=== PATIENT | female | born 1960 | race Caucasian/White ===

== ENCOUNTER → 2017-03-13 | Outpatient (CLI) | payer OTHER | LOC: BMCIMAGING 14:00 | DX: Z12.31 Encounter for screening mammogram for malignant neoplasm of breast (principal) | CPT/HCPCS: G0202 ==

== ENCOUNTER → 2017-09-07 | Outpatient (CLI) | payer OTHER | LOC: BMCIMAGING 11:52 | PROVIDERS: ATTEND Physician Assistant Medical | DX: I51.7 Cardiomegaly (principal); J98.9 Respiratory disorder, unspecified ==

== ENCOUNTER 2017-09-27 12:16 | Emergency (ER) | payer OTHER ==
[2017-09-27 12:28] VITALS: RESP 18
--- NOTE | 2017-09-27 13:24 | EDPHY ---
General - History Smoking Status: Never smoked Narrative: Independent physician documentation I evaluated and participated in the management of the patient. I also evaluated the patient independently. My co-signature indicates that I have reviewed this chart and I agree with the findings and plan of care as documented. My personal H&P findings include: The patient presents to the ED with acute left elbow pain following a mechanical fall. The patient has inability to flex and extend her elbow. She has no complaints of acute numbness or weakness. The patient did not strike her head or lose consciousness. She has no complaints of abdominal pain, chest pain or additional extremity complaints. Physical exam General Appearance: Alert, no distress Head: Atraumatic Eyes: Pupils equal, round, reactive ENT, Mouth: No hemotympanum, no oral trauma Neck: Nontender, trachea midline Respiratory: No chest wall tender, subcutaneous air, lungs clear bilaterally Cardiovascular: Regular rate and rhythm Abdomen: Abdomen is soft and nontender, pelvis stable Skin: No lacerations, No abrasion Back: No midline T/L/S pain Extremities: Obvious deformity noted to left elbow Neurological: A&Ox3, normal motor function, normal sensory exam ER course: I reviewed the patient's x-rays which demonstrated posterior left elbow dislocation. The patient was verbally consented to undergo reduction with sedation. The patient was reduced by myself without complication. The patient will be placed in a posterior splint. She is given a sling and advised to follow up with her regular orthopedic surgeon Dr. Francis Fung. Procedures Procedure: Reduction of left posterior elbow dislocation Indication: Dislocation The left elbow was reduced in the usual fashion without complications. The patient received 50 mg of ketamine and 150 mcg of fentanyl prior to the procedure. Post reduction the patient's neurovascular exam is normal. Post reduction x-ray demonstrates reduction of the joint to the anatomic position. The procedure was performed by myself. The patient has been placed in a posterior Ortho Glass splint. Post reduction x-ray demonstrates no evidence of a surgical fracture. The patient does have some very small foreign bodies which appear to be old as they are smooth well corticated. Patient will follow up with Dr. Francis Fung who she has seen in the past. (Louie Weems) CHIEF COMPLAINT: Mechanical fall, left elbow pain HISTORY OF PRESENT ILLNESS: Patient complains of left elbow pain. She says she was walking on her property just prior to arrival when she tripped and fell. She is not sure whether she landed with her arm straight or if she landed on her elbow. She did not strike her head or lose consciousness. No headache or loss of conscious. No neck pain. No chest or back pain. No abdominal pain or injuries to the arms or legs. She has some tingling of the left hand. The pain is moderate to severe in the left elbow. Radiates into the forearm. No pain anywhere else. No other associated complaints or modifying factors. ESTABLISHED ORTHOPEDIST: Dr. Fung REVIEW OF SYSTEMS: Ten systems reviewed and are negative unless otherwise noted in the HPI PAST MEDICAL HISTORY: Coronary artery disease, hypertension, SVT, seasonal allergies, diabetes mellitus PAST SURGICAL HISTORY: Left knee surgery SOCIAL HISTORY: Nonsmoker. Occasional alcohol. No drug use FAMILY HISTORY: EXAMINATION General Appearance: Alert, no distress Cardiovascular: Pulses normal throughout. Symmetric radial pulses 2+. Brisk cap refill Neurological: A&O, paresthesias of dorsum left hand. Wrist drop. Strength symmetric in the interossei. Skin: Warm and dry, no rash. No lacerations abrasions, contusions or punctures. Extremities: Tenderness of the left elbow and proximal forearm. Unable to test range of motion due to pain. No tenderness of the left wrist or shoulder. Psychiatric: Mood and affect normal DIFFERENTIAL DIAGNOSES: Including but not limited to fracture, sprain, strain, contusion, dislocation, fracture dislocation MDM: 12:30 p.m. Mechanical fall with left elbow pain. Clinically as suspected radial head fracture. She reports paresthesias of the hand but has no weakness or wrist drop. Her shoulders fine and has no pain. X-ray has been ordered. 1:20 p.m. X-ray as read by me reveals an elbow dislocation. I have reviewed the film with Dr. Weems. He is currently evaluating the patient. Will place IV for further pain medication closed reduction attempt. Have informed the patient of this. She still complains of paresthesia but appears to be neuro intact otherwise. 2:05 p.m. Elbow has been reduced by Dr. Weems. Please see his note for details. Post reduction film is pending. 2:25 p.m. Elbow reduction that has been reduced by Dr. Weems. She is in no acute distress. I have re-evaluated the patient. She is neurovascular intact. Currently being placed in a splint. She will be discharged home with instructions to follow up with her established orthopedist. ED precautions discussed. She is comfortable this plan. ED Precautions: Worsening pain. Erythema, edema, cyanosis, pallor, paresthesia or anesthesia. (Minor Antonio) - Diagnostics Imaging Results: Imaging Impressions Elbow X-Ray 09/27/17 12:35 Impression: Elbow dislocation. - Objective Vital Signs: Initial Vital Signs Temperature (C) 97.9 F 09/27/17 12:26 Heart Rate 61 09/27/17 12:26 Respiratory Rate 18 09/27/17 12:26 Blood Pressure 159/89 H 09/27/17 12:26 O2 Sat (%) 88 L 09/27/17 12:26 O2 Delivery Mode [Post Nasal Cannula Procedure 2nd] O2 Delivery Mode [Post Room Air Procedure 1st] O2 Delivery Mode [Procedural Room Air 1st] O2 Delivery Mode [.Immediate Nasal Cannula Pre-Procedure] O2 Delivery Mode Nasal Cannula O2 (L/minute) [Post Procedure 2 2nd] O2 (L/minute) [Procedural 1st] 2 O2 (L/minute) [.Immediate Pre- 2 Procedure] O2 (L/minute) 2 Allergies/Adverse Reactions: ENVIRONMENTAL- HAYFEVER Allergy (Mild, Uncoded 08/25/14 12:56) Home Medications: Medication Instructions Recorded Aspirin [Aspirin 81mg (OTC)] 81 mg PO HS 08/27/14 Citalopram Hydrobromide 10 mg PO HS 08/27/14 [Citalopram HBr] Clopidogrel Bisulfate [Plavix (RX)] 75 mg PO DAILY 08/27/14 Levothyroxine [Synthroid 112 mcg 112 mcg PO DAILY06 08/27/14 (RX)] Loratadine [Claritin] 10 mg PO HS 08/27/14 Methocarbamol [Robaxin 500 mg (RX)] 250 mg PO HS 08/27/14 Metoprolol Tartrate [Lopressor 25 12.5 mg PO BID 08/27/14 mg (RX)] Ranitidine HCl [Zantac] 300 mg PO HS 08/27/14 Rosuvastatin Calcium [Crestor 40mg 40 mg PO DAILY 08/27/14 (RX)] Zolpidem Tartrate [Ambien 10 mg] 10 mg PO HS 08/27/14 Enoxaparin [Lovenox] 30 mg SC BID #20 syr 10/29/14 oxyCODONE IR [Oxycodone Ir (*)] 5 - 15 mg PO Q3 PRN #90 tab 09/24/14 oxyCODONE HCL/ACETAMINOPHEN 1 each PO Q4-6PRN PRN #15 tablet 09/27/17 [Percocet 5-325 mg Tablet] Medications Given: Discontinued Medications Fentanyl (Sublimaze) 150 mcg IVP EDNOW ONE Stop: 09/27/17 13:26 Last Admin: 09/27/17 13:42 Dose: 150 mcg Ketamine HCl (Ketamine) 50 mg IVP EDNOW ONE Stop: 09/27/17 13:59 Last Admin: 09/27/17 13:59 Dose: 50 mg Departure - Departure Disposition: Home, Routine, Self-Care Clinical Impression: Dislocation of elbow, left, closed Qualifiers: Encounter type: initial encounter Qualified Code(s): S53.105A - Unspecified dislocation of left ulnohumeral joint, initial encounter Fall Qualifiers: Encounter type: initial encounter Qualified Code(s): W19.XXXA - Unspecified fall, initial encounter Condition: Good Instructions: Elbow Dislocation (ED) Additional Instructions: 1. Nonweightbearing to the left upper extremity until seen by orthopedist 2. Pain medication as prescribed as needed 3. ED precautions as discussed Referrals: Francis Fung MD [Medical Doctor] - As per Instructions Prescriptions: oxyCODONE HCL/ACETAMINOPHEN [Percocet 5-325 mg Tablet] 1 each PO Q4-6PRN PRN # 15 tablet PRN Reason: Pain, Breakthrough
[2017-09-27] MEDS ORDERED: fentaNYL 100 MCG/2 ML INJ IVP ONE (13:25)
[2017-09-27] MEDS ORDERED: KETAMINE 100 MG/10 ML SYR ONE (13:35)
[2017-09-27] MEDS ORDERED: KETAMINE 100 MG/10 ML SYR IVP ONE (13:58)
[2017-09-27 15:04] VITALS: BP 156/65; PULSE 70; TEMP 98.1; O2SAT 97
== END 2017-09-27 15:04 | disposition home or self-care (01) ==
LOC: EDUNIT#
PROC: 0RS Upper Joints, Reposition (ICD-10-PCS; principal; 2017-09-27)
DX: S53.105A Unspecified dislocation of left ulnohumeral joint, initial encounter (principal); I25.10 Atherosclerotic heart disease of native coronary artery without angina pectoris; I10 Essential (primary) hypertension; E11.9 Type 2 diabetes mellitus without complications; Z79.82 Long term (current) use of aspirin; W01.0XXA Fall on same level from slipping, tripping and stumbling without subsequent striking against object, initial encounter
CPT/HCPCS: J3010; L3980

== ENCOUNTER → 2017-09-28 | Outpatient (CLI) | payer OTHER | LOC: BMCIMAGING 15:56 | PROVIDERS: ATTEND Orthopaedic Surgery Hand Surgery | DX: S59.902A Unspecified injury of left elbow, initial encounter (principal) ==

== ENCOUNTER → 2017-10-10 | Outpatient (CLI) | payer OTHER | LOC: BMCLAB 11:39 | PROVIDERS: ATTEND Orthopaedic Surgery Hand Surgery | DX: M53.3 Sacrococcygeal disorders, not elsewhere classified (principal); R10.32 Left lower quadrant pain; M25.522 Pain in left elbow ==

== ENCOUNTER → 2018-04-16 | Outpatient (CLI) | payer OTHER | LOC: BMCIMAGING 12:19 | PROVIDERS: ATTEND Internal Medicine | DX: Z12.31 Encounter for screening mammogram for malignant neoplasm of breast (principal) ==

== ENCOUNTER → 2019-01-24 | Day surgery (SDC) | payer OTHER ==
[~2019-01-24] MED LIST: ADENOSINE 90 MG/30 ML VIAL IV ONE; ASPIRIN EC 325 MG TAB PO ONE; ATROPINE SULFATE 1 MG/10 ML SYR IVP PRN; DIAZEPAM 5 MG TAB ONE; DIAZEPAM 5 MG TAB PO ONE; FAMOTIDINE 20 MG TAB ONE; FAMOTIDINE 20 MG TAB PO ONE; HEPARIN 10,000 UNIT/10 ML MDV (1,000 UNIT/ML) ONE; HYDROCODONE/APAP 5/325 TAB PO PRN; IOPAMIDOL (ISOVUE-370) 150 ML BTL IV ONE; LIDOCAINE 1% 300 MG/30 ML SDV ONE; MIDAZOLAM 2 MG/2 ML VIAL ONE; NITROGLYCERIN 0.4 MG BTL SL PRN; NS 1,000 ML IV ONE; VERAPAMIL 5 MG/2 ML VIAL ONE; diphenhydrAMINE 25 MG CAP PO ONE; fentaNYL 100 MCG/2 ML INJ ONE
[2019-01-24 08:42] LABS: PLATELET COUNT 221 10^3/uL (150-400)
[2019-01-24 08:53] LABS: INR 0.96 (0.83-1.16); PROTIME(PATIENT) 12.4 SEC (12.0-15.0)
--- NOTE | 2019-01-24 09:19 | PDGENHP ---
History & Physical Chief Complaint: Chest pain History of Present Illness: Has a h/o CAD with prior STEMI and PCI of the RCA. Has been experiencing anginal quality symptoms for several weeks. A nuclear stress test demonstrated anterior ischemia. See office note of 12/21/2018. Pertinent Past, Social, Family History: See office note of 12/21/2018. Relevant Physical Exam: A & O x 3. RRR w/o murmur. Lungs CTA. No edema.
--- NOTE | 2019-01-24 09:22 | PDPROPOC ---
Sedation Plan of Care Sedation Plan of Care: vital signs stable, mental status noted, patient educated of risks, benefits, alternatives, patient can tolerate sedation ASA Classification: ASA 1 Planned drugs: fentanyl, midazolam Mallampati Score: Class 2 Mallampati Reference Image: Patient passed 3-3-2 rule?: Yes
--- NOTE | 2019-01-30 11:12 | CPEKG ---
Test Reason : OPEN Blood Pressure : / mmHG Vent. Rate : 076 BPM Atrial Rate : 076 BPM P-R Int : 152 ms QRS Dur : 090 ms QT Int : 392 ms P-R-T Axes : -01 060 -11 degrees QTc Int : 441 ms Sinus rhythm Nonspecific ST abnormality Confirmed by Duran Cunningham ([id number]) on 01/30/2019 11:11:39 AM Referred By: Anoop Hawkins Confirmed By:Duran Cunningham
== END | disposition home or self-care (01) ==
LOC: FCATH 08:01
PROVIDERS: ATTEND Internal Medicine Interventional Cardiology
DX: I25.119 Atherosclerotic heart disease of native coronary artery with unspecified angina pectoris (principal); I25.2 Old myocardial infarction; Z95.5 Presence of coronary angioplasty implant and graft
CPT/HCPCS: 93458; 93571; C1769; C1887; J0153; J1644; J2250; J3010; Q9967